=== PATIENT | male | born 1960 | race Caucasian/White ===

== ENCOUNTER 2023-11-20 11:18 | Outpatient (CLI) | payer OTHER, SELFPAY ==
--- NOTE | ~2023-11-20 | XR_ITS ---
Supine and upright views of the abdomen Clinical history: Kidney stone Findings: Bowel gas pattern is nonspecific. No evidence for obstruction or free air. Multiple small r ight renal stones are present, measuring 5 mm. No definite left renal stone.. 1.5 cm hyperdense round calcific impression present in the left upper quadrant, nonspecific. Probable pelvic phleboliths. 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 Impression: Right nephrolithiasis, as above. Reviewed, dictated and finalized at location . Impression: Right nephrolithiasis, as above.
== END 2023-11-20 11:19 | disposition home or self-care (01) ==
LOC: ANHIMG 11:25
PROVIDERS: PCP Student in an Organized Health Care Education/Training Program; Visit Provider Urology
DX: N20.0 Calculus of kidney (principal)
CPT/HCPCS: 74018

== ENCOUNTER 2024-02-16 09:04 | Emergency (ER) | payer OTHER, SELFPAY ==
--- NOTE | ~2024-02-16 | XR_ITS ---
XR finger 3rd LT min 2V Ordering provider: Adilene Dan MD History: . trauma POWER TOOL LAC TO ANT DISTAL LT 3RD DIGIT . Comparison: None. FINDINGS: BONES: No acute fracture or dislocation. JOINT SPACES: Normal. SOFT TISSUES: Laceration in the distal phalanx of the middle finger soft tissues is seen. IMPRESSION: No acute osseous abnormality. Reviewed, dictated and finalized at location A.
[2024-02-16 09:06] VITALS: BP 157/82; PULSE 89; RESP 15; TEMP 36.4; O2SAT 96
[2024-02-16] MEDS: KETOROLAC (*BKC) 60 MG/2 ML VIAL IM (11:37)
--- NOTE | 2024-02-16 11:40 | PC.NURSE ---
Patient states he is up-to-date with his tdap
--- NOTE | 2024-02-16 12:23 | ED.WOUNDLAC ---
HPI - Wound/Laceration General Chief Complaint: Wound/Laceration Stated Complaint: laceration left 2nd finger Time Seen by Provider: 02/16/24 10:59 Source: patient Mode of arrival: ambulatory Limitations: no limitations History of Present Illness HPI narrative: Pt presents to the ER after cutting his 3rd digit on his L hand with a corner trimmer operator. He reports he used washcloths to control the bleeding on the way to the ER. Pt reports he does not have much pain when he doesn't move the finger, but his pain is significant once the pressure is removed. Pt denies shortness of breath, chest pain, palpitations, and fever. Related Data Allergies Allergy/AdvReac Type Severity Reaction Status Date / Time No Known Allergies Allergy Verified 02/16/24 09:11 Review of Systems Review of Systems: All systems reviewed & are unremarkable except as noted in HPI and below Exam Narrative: GENERAL: Well-appearing, well-nourished and in no acute distress. EXTREMITIES: Normal range of motion, no swelling, clubbing or other deformities. Pt has an approximately 5cm laceration on his L 3rd index finger that is continually oozing. The laceration includes a flap of skin still attached that needs to be sutured back to the finger. NEUROLOGICAL: Cranial nerves II through XII grossly intact, no focal deficits noted. Normal gait, normal speech. SKIN: Warm, dry, normal color, no rashes, no lesions. Course Vital Signs Vital signs: Vital Signs Temperature 36.4 C 02/16/24 09:06 Pulse Rate 89 02/16/24 09:06 Respiratory Rate 15 02/16/24 09:06 Blood Pressure 157/82 H 02/16/24 09:06 Pulse Oximetry 96 02/16/24 09:06 Oxygen Delivery Room Air 02/16/24 09:06 Temperature 36.4 C 02/16/24 09:06 Pulse Rate 89 02/16/24 09:06 Respiratory Rate 15 02/16/24 09:06 Blood Pressure 157/82 H 02/16/24 09:06 Pulse Oximetry 96 02/16/24 09:06 Oxygen Delivery Room Air 02/16/24 09:06 Procedures Laceration Laceration 1: Date: 02/16/24 Time: 13:37 Site: hand Side (If applicable): left (3rd digit) Size (cm): 5 Description: linear Depth: simple, single layer Local Anesthetic: lidocaine 1% Amount of anesthesia used (mL): 8 Pre-repair: irrigated extensively ====== Skin Level ====== Skin layer closed with: nylon Size (cm): 4-0 Number of sutures: 10 Technique: simple, interrupted ====== Subcutaneous Layer ====== ====== Muscle Layer ====== ====== Tendon Layer ====== Dressin cm x 1 cm Surgicel placed on top of open wound. Nerve Block Nerve Block 1: Nerve block date: 02/16/24 Nerve block time: 13:10 Side: left Nerve Blocks: digital Procedure Successful: Yes Patient Tolerated Procedure: well Complications: none MDM - Wound/Laceration MDM Narrative Medical decision making narrative: t presents to the ER after cutting his 3rd digit on his L hand with a corner trimmer operator. He reports he used washcloths to control the bleeding on the way to the ER. Pt reports he does not have much pain when he doesn't move the finger, but his pain is significant once the pressure is removed. Upon examination, pt has normal range of motion, no swelling, clubbing or other deformities. Pt has an approximately 5cm laceration on his L 3rd index finger that is continually oozing. The laceration includes a flap of skin still attached that needs to be sutured back to the finger. Pt's 3rd digit continues to bleed after bandage is removed. His 3rd digit was cleaned and CERTIFIED SURGICAL TECH/FIRST ASSISTANT injected Lidocaine into the base of pt's 3rd digit. A digital block was also placed at the base of the 3rd digit. Once pt endorsed numbness in his fingertip, CERTIFIED SURGICAL TECH/FIRST ASSISTANT placed 10 Ethilon 4.0 stitches in pt's 3rd digit. Surgicel was also placed on an open portion of pt's medial 3rd digit. Bleeding was controlled after procedure, but pressure dressin
== END 2024-02-16 14:19 | disposition home or self-care (01) ==
PROVIDERS: Emergency Provider Registered Nurse; PCP Student in an Organized Health Care Education/Training Program
DX: S61.213A Laceration without foreign body of left middle finger without damage to nail, initial encounter (principal); W29.3XXA Contact with powered garden and outdoor hand tools and machinery, initial encounter
CPT/HCPCS: 12002; 73140; 96372; 99283; J1885

== ENCOUNTER 2024-05-07 12:36 | Outpatient (CLI) | payer OTHER, SELFPAY ==
--- NOTE | ~2024-05-07 | CT_ITS ---
CT of the Abdomen and Pelvis: Indication: Abdominal calcification Technique: 2.5 mm axial scans were obtained through the abdomen and pelvis following intravenous adm inistration of 100 cc of Omnipaque 350. Dose reduction technique was used on this scan by utilizing a utomated exposure control and iterative reconstruction technique. The dose-length product (DLP) was 1 099.58 mGy-cm. Findings: Scans through the lung bases are unremarkable. The liver, pancreas, gallbladder, and adrenal glands are within normal limits. There is a 14 mm coars e splenic calcification. There are small bilateral nonobstructing renal stones, largest at the right lower pole measuring 5 mm. No hydronephrosis. No evidence of aortic aneurysm. No lymphadenopathy. No bowel obstruction or bowel wall thickening. There is no evidence to suggest acute appendicitis. Images through the pelvis were performed. Urinary bladder unremarkable. No pelvic mass seen. Small fa t-containing bilateral inguinal hernias are present, right larger than left. No ascites. There is advanced degenerative spondylosis of the lower lumbar spine. Impression: Small bilateral nonobstructing renal stones, as detailed above. Small bilateral fat-containing inguinal hernias, right larger than left. Reviewed, dictated and finalized at [facility]. E ROLL OPERATOR Impression: Small bilateral nonobstructing renal stones, as detailed above. Small bilateral fat-containing inguinal hernias, right larger than left.
[2024-05-07 13:03] LABS: Estimated Glomerular Filt Rate > 60
== END 2024-05-07 12:37 | disposition home or self-care (01) ==
LOC: MICIMG 12:37
PROVIDERS: PCP Student in an Organized Health Care Education/Training Program; Visit Provider Student in an Organized Health Care Education/Training Program
DX: N20.0 Calculus of kidney (principal); K40.20 Bilateral inguinal hernia, without obstruction or gangrene, not specified as recurrent
CPT/HCPCS: 74177; Q9967

== ENCOUNTER 2025-04-23 00:20 | Emergency (ER) | payer OTHER, SELFPAY ==
--- NOTE | ~2025-04-23 | CT_ITS ---
EXAMINATION: CT abdomen pelvis w con DATE: 04/23/2025 03:24 INDICATION: Right abdominal pain. TECHNIQUE: Computed tomography (CT) of the abdomen and pelvis was performed with 100 mL Omnipaque 350 intravenous contrast. Automated exposure control and iterative reconstruction technique were employed. The dose-length product was 1073.85 mGy-cm. COMPARISON: CT abdomen and pelvis 05/07/2024 FINDINGS: The visualized portions of lung bases demonstrate mild atelectasis. No pleural effusion. The heart size is normal. No pericardial effusion. Calcifications in the liver and spleen are consistent with old granulomatous disease. The gallbladder, pancreas, and adrenal glands are normal. There is cortical thinning of the kidneys. There are greater than 10 stones in right kidney measuring up to 5 mm. There is mild right hydronephrosis and proximal hydroureter. There are 3 stones in right ureter where it crosses the iliac vessels measuring up to 2 mm. The prostate is moderately enlarged. There are bilateral inguinal hernias containing fat. There are no dilated loops of bowel. The appendix is normal. There are no pathologically enlarged lymph nodes. There is no free intraperitoneal fluid. There is severe lumbar spondylosis. IMPRESSION: 1. 3 stones in mid right ureter measuring up to 2 mm with mild right hydronephrosis and proximal hydroureter. 2. Nonobstructing right kidney stones. 3. Bilateral inguinal hernias containing fat. Reviewed, dictated and finalized at location E. IMPRESSION: 1. 3 stones in mid right ureter measuring up to 2 mm with mild right hydronephr osis and proximal hydroureter. 2. Nonobstructing right kidney stones. 3. Bilateral inguinal hernias containing fat.
--- OUTSIDE RECORDS SUMMARY | 2025-04-23 00:23 | XMS_ITS | Encounter Summary ---
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 [employer] at March exam visit Social History Tobacco Use Types Packs/Day Years Used Date Smoking Tobacco: Never Alcohol Use Standard Drinks/Week Comments Not Currently 1.7 (1 standard drink = 0.6 oz p ure alcohol) Occasionally drinks beer PHQ-2 Answer Date Recorded Patient Health Questionnaire-2 Score 0 10/25/2024 Sex and Gender Information Value Date Recorded Sex Assigned at Male 10/25/2024 11:21 AM CDT Legal Sex Male 2:43 PM CDT Gender Identity Male 10/25/2024 11:21 AM CDT Sexual Orientation Not on file Occupation Industry Job Start Date Job End Date Not on file Not on file Not on file Not on file Not on file Not on file Not on file Not on file documented as of this encounter Progress Notes * Porter Jones DO - 04/04/2025 7:15 AM CDT I do not see any immediate issues with completing. Can discuss and complete on 04/26/25 appointment. documented in this encounter Plan of Treatment Upcoming Encounters Date Type Department Care Team (Late st Contact Info) Description 04/25/2025 10:00 AM CDT Laboratory Only [facility] Family & Internal [address] [phone] Porter Jones DO [address] [place] [phone] 04/26/2025 10:20 AM CDT Office Visit [facility] Family Internal [address] [phone] Porter Jones DO [address] [place] [address] documented as of this encounter Visit Diagnoses Not on filedocumented in this encounter Care Teams Direct Support Staff Relationship Specialty Start Date End Date Porter Jones DO [address] [place] [address] PCP - General FAMILY PRACTICE 01/02/23 documented as of this encounter
--- OUTSIDE RECORDS SUMMARY | 2025-04-23 00:23 | XMS_ITS | Clinical Summary ---
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 Active atorvastatin (LIPITOR) 20 MG tabletIndications: Hyperlipidemia, unspecified hyperlipidemia type Take 1 tablet (20 mg total) by mouth nightly at bedtime. 90 tablet 3 04/27/20 24 Active lisinopril (PRINIVIL) 20 MG tabletIndications: Primary hypertension TAKE 1 TABLET DAILY 90 tablet 3 12/08/19 25 Active omeprazole (PRILOSEC) 20 MG capsuleIndications :Gastroesophageal reflux disease, unspecified whether esophagitis present TAKE 1 CAPSULE EVERY OTHER DAY 45 capsule 3 04/01/20 25 Active omeprazole (PRILOSEC) 20 MG capsuleIndications :Gastroesophageal reflux disease, unspecified whether esophagitis present Take 1 capsule (20 mg total) by mouth every other day. 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 5 ML Prefilled Syringe) 04/27/2024 Influenza Adult (Generic) 06/16/2023 PFIZER COVID-19 (12+) MRNA, LNP-S, PF, AXEL-SUCROSE, 30 MCG/0.3 ML (COMIRNATY) 04/27/2024 PFIZER COVID-19 (MARTINEZ CAP), MRNA, LNP-S, PF, 30 MCG/0.3 ML AXEL-SUCROSE, IM 11/01/2021,06/06/2021,10/24/2020,2020 Pneumococcal (Prevnar 20) 10/25/2024 Shingrix 10/25/2024 Tdap (Adacel) 10/20/2023 Family History Medical History Relation Comments Squamous cell carcinoma Brother 1 Cancer Brother 2 Common Squamous Cell Carcinoma Diverticulitis Father Hearing loss Father Heart Disease Father Quad bypass Hypertension Father Kidney Stones Father Bone cancer Maternal Aunt 1 Cataract Maternal Aunt 1 Hypotension Maternal Aunt 1 Stroke Maternal Aunt 1 Cancer Maternal Aunt 2 Cancer of the saniya ne, 1951 Cataract Maternal Grandfather Pulmonary Fibrosis Maternal Grandfather Cancer Maternal Grandmother Pancreatic cancer Pancreatic cancer Maternal Grandmother Acute myelogenous leukemia Mother Appendicitis Mother Cancer Mother Acute Myelocytic Leukemia Cataract Mother Diverticulitis Mother Irritable bowel syndrome Mother Diabetes Paternal Grandmother Stroke Paternal Grandmother Appendicitis Sister Hearing loss Sister Hypertension Sister Kidney Stones Sister primary sclerosing cholangi Sister Relation Status Comments Brother 1 Brother 2 Father Maternal Aunt 1 Maternal Aunt 2 Maternal Grandfather Maternal Grandmother Mother Paternal Grandmother Sister Social History Tobacco Use Types Packs/Day Years Used Date Smoking Tobacco: Never Tobacco Cessation:Counseling Given: Yes Alcohol Use Standard Drinks/Week Comments Not Currently [...] file Not on file Not on file Last Filed Vital Signs Vital Sign Reading Time Taken Comments Blood Pressure 126/78 10/25/2024 11:23 AM CDT Pulse 80 10/25/2024 11:23 AM CDT Temperature 36.7 C (98 F) 10/25/2024 11:23 AM CDT Respiratory Rate 16 10/25/2024 11:2 3 AM CDT Oxygen Saturation 98% 10/25/2024 11: 23 AM CDT Inhaled Oxygen Concentration - - Weight 113.7 kg (250 lb 11.2 oz) 2024 11:23 AM CDT Height 180.3 cm (5' 11) 10/25/2024 11: 23 AM CDT Body Mass Index 34.97 10/25/2024 11:23 AM CDT Plan of Treatment Upcoming Encounters Date Type Department Care Team (Late st Contact Info) Description 04/25/2025 10:00 AM CDT Laboratory Only [facility] Family & Internal [place] [address] [place] [phone] Porter Jones DO [address] [place] [address] 04/26/2025 10:20 AM CDT Office Visit [facility] Family & Internal [place] [address] [place] [phone] Porter Jones DO [address] [place] [address] Health Maintenance Due Date Last Done Comments Zoster Vaccines (2 of 2) 12/20/2024 10/25/2024 COVID-19 Vaccine ( season) 2025 04/27/2024, 06/16/2023, 11/01/2021, Additional history exists Influenza Adult (#1) 2025 04/27/2024, 06/16/20 23 Annual Physical 04/27/2025 04/27/2024 Colorectal Cancer Screening Colonoscopy (10 Years) 07/03/2028 07/03/2023, 07/03/2023 DTaP, Tdap and Td Vaccines (2 - Td or Tdap) 10/19/2033 10/20/2023 RSV Immunization or 60+ Years (1 - 1-dose 75+ series) 2037 Hepatitis C Completed 04/14/2023 Colorectal Cancer Screening FIT-DNA (3 Years) Discontinued 04/21/2023, 04/21/2023 PHQ-2 (Physician [facility]) Completed 10/25/2024 Pneumococcal Vaccine: 50+ Years Completed 10/25/2024 Hepatitis A Vaccines Aged Out No long er eligible based on patient's age to complete this topic Meningococcal B Vaccine Aged Out No l onger eligible based on patient's age to complete this topic Meningococcal Vaccine Aged Out No ashley hemal eligible based on patient's age to complete this topic RSV Immunizations Under 20 Months Aged Out No longer eligible based on patient's age to complete this topic Procedures Procedure Name Priority Date/Time Associated Diagnosis Comments COLONOSCOPY Routine 07/03/2023 10:51 AM [employer] COLOGUARD ([employer]) Routine 04/21/2023 1:50 PM CDT Annual physical exam Screening for malignant neoplasm of colon HEPATITIS C ANTIBODY Routine 04/14/2023 2:09 PM CDT Annual physical exam Screening for lipid disorders Screening for endocrine, metabolic and immunity disorder Screening for prostate cancer from Last 3 Months or Most Recently Relevant to Health Maintenance Results * (ABNORMAL) COLOGUARD ([employer]) (04/21/2023 1:50 PM CDT) COLOGUARD RESULT Positive( A) Negative [facility] (CLIA #:[id number]) Comment: POSITIVE TEST RESULT. A positive Cologuard result should be followed with a colonoscopy or visual examination of the colon. The normal value (reference range) for this assay is negative. TEST DESCRIPTION: Composite algorithmic analysis of stool DNA-biomarkers with hemoglobin immunoassay. Quantitative values of individual biomarkers are not reportable and are not associated with individual biomarker result reference ranges. Cologuard is intended for colorectal cancer screening of adults of either sex, 45 years or older, who are at average-risk for colorectal cancer (CRC). Cologuard has been approved for use by the U.S. FDA. The performance of Cologuard was established in a cross sectional study of average-risk adults aged 50-84. Cologuard performance in patients ages 45 to 49 years was estimated by sub-group analysis of near-age groups. Colonoscopies performed for a positive result may find as the most clinically significant lesion: colorectal cancer [4.0%], advanced adenoma (including sessile serrated polyps greater than or equal to 1cm diameter) [20%] or non- advanced adenoma [31%]; or no colorectal neoplasia [45%]. These estimates are derived from a prospective cross-sectional screening study of 10,000 individuals at average risk for colorectal cancer who were screened with both Cologuard and colonoscopy. (Rich Logan. et al, N Engl J Med 2014;370(14):8728-2429.) Cologuard may produce a false negative or false positive result (no colorectal cancer or precancerous polyp present at colonoscopy follow up). A negative Cologuard test result does not guarantee the absence of CRC or advanced adenoma (pre-cancer). The current Cologuard screening interval is every 3 years. ([place] [employer] Society and U.S. Multi-Society Task Force). Cologuard performance data in a 10,000 patient pivotal study using colonoscopy as the reference method can be accessed at the following location: [email or web address]. Additional description of the Cologuard test process, warnings and precautions can be found at [email or web address]. STOOL STOOL SPECIMEN / Unknown 04/21/2023 1:50 PM CDT 04/22/2023 4:22 PM CDT us Porter Jones DO BODY FLUIDS AND STOOLS O RDERABLES Final Result [employer] ([facility]) [address] [place] [address], [facility] (CLIA #:[id number]) [place] [address] * HEPATITIS C ANTIBODY ([facility] ONLY) (04/14/2023 2:09 PM CDT) HEPATITIS C AB NON-REACTI VE NON-REACT CLAY 04/15/2023 6:37 PM CDT [facility] Comment: ANTIBODIES TO HCV NOT DETECTED. DOES NOT EXCLUDE THE POSSIBILITY OF EXPOSURE TO HCV. 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
[2025-04-23 00:25] VITALS: BP 171/84; PULSE 88; RESP 18; TEMP 36.6; O2SAT 100
--- NOTE | 2025-04-23 02:04 | ED_ITS ---
HPI - Abdominal Pain General Chief Complaint: Abdominal Pain Stated Complaint: lower right abdominal pain Time Seen by Provider: 04/23/25 01:47 Source: patient Mode of arrival: ambulatory Limitations: no limitations History of Present Illness HPI narrative: This is a 65-year-old male with history of hypertension, hyperlipidemia, kidney stones who presents the ED for right lower quadrant pain and right flank pain. Patient states that 4 hours ago, he was sitting at home when he had sudden onset right lower quadrant pain that radiated to his right flank. Denies fevers, chills, dysuria, hematuria. He states that this feels slightly similar to his prior kidney stones but they never radiated to his right flank before. His most recent stone was 4 years ago. Related Data Allergies Allergy/AdvReac Type Severity Reaction Status Date / Time No Known Allergies Allergy Verified 02/16/24 09:11 Review of Systems 2 Review of Systems: Gen.: Denies fevers or chills Eyes: Denies eye pain or visual change ENT: Denies congestion Respiratory: Denies shortness of breath or cough CV: Denies chest pain or palpitations GI: As per HPI denies burning, urgency, frequency or hematuria Musculoskeletal: Denies back pain or muscle pain Neuro: Denies numbness, tingling, weakness or focal weakness Skin: Denies rash Except as documented, all other systems reviewed and negative Exam 2 Narrative: APPEARANCE: Moderate distress, nontoxic, pacing around the room EYES: EOMI HEENT: Normocephalic, atraumatic, OMM RESPIRATORY: No respiratory distress Clear to auscultation bilaterally with no rhonchi wheezing or rales. CARDIOVASCULAR: Regular rate and rhythm without murmurs rubs or gallops. ABDOMINAL: Soft, tenderness palpation to the right lower quadrant, nondistended, no rebound or guarding. CVA tenderness on the right MUSCULOSKELETAl: Moves all extremities. No clubbing, cyanosis or edema. NEURO: Awake and alert. Following commands, speech normal, no focal deficits SKIN:: Warm, dry. No rashes lesions or abrasions PSYCHIATRIC: Normal affect/mood, Course Vital Signs Vital signs: Vital Signs Temperature 97.9 F 04/23/25 00:25 Pulse Rate 88 04/23/25 00:25 Respiratory Rate 18 04/23/25 00:25 Blood Pressure 171/84 H 04/23/25 00:25 Pulse Oximetry 100 04/23/25 00:25 Oxygen Delivery Room Air 04/23/25 00:25 Temperature 97.9 F 04/23/25 00:25 Pulse Rate 85 04/23/25 06:18 Respiratory Rate 17 04/23/25 06:18 Blood Pressure 158/60 H 04/23/25 06:18 Pulse Oximetry 97 04/23/25 06:18 Oxygen Delivery Room Air 04/23/25 00:25 MDM - Abdominal Pain MDM Narrative Medical decision making narrative: 65-year-old male presenting for right lower quadrant abdominal pain and right flank pain. On initial evaluation, patient was pacing around in the room in mild distress, afebrile, hemodynamically stable. He did have right lower quadrant tenderness to palpation with CVA tenderness on the right. He had a mild leukocytosis at 13.7. CMP without significant abnormalities. UA clear. CT abdomen/pelvis did reveal multiple small stones on the right. Patient has established with a urologist here but he does not recall his name. The stones are likely to pass. Patient was given prescriptions for Flomax, Toradol, [place], Zofran. He was advised follow-up with his urologist in the next week for re-evaluation. Patient was agreeable to this plan. Given strict return precautions. Differential Diagnosis Differential diagnosis: Likely acute appendicitis, calculus of kidney, constipation, diverticulitis, gastroenteritis, pancreatitis, small bowel obstruction and other Medical Records Attestation: I reviewed the patient's medical records. Lab Data Attestation: I reviewed the patient's lab results. 04/23/25 02:38 04/23/25 02:38 Labs: Lab Results 04/23/25 04/23/25 Range/Units 02:38 04:41 WBC 13.7 H (4.5-10.0) K/mm3 RBC 4.86 (4.6-6.20) M/mm3 Hgb 14.3 (14.0-18.0) g/dL Hct 42.2 (42.0-52.0) % MCV 86.8 (80-100) fl MCH 29.4 (26-34) pg MCHC 33.9 (32-36) g/dl RDW 11.9 (11.5-14.5) % Plt Count 278 (150-375) k/mm3 MPV 9.3 (7.4-10.4) fl Immature Gran % (Auto) 0.4 (0-0.5) % Neut % (Auto) 84.1 H (45.5-73.1) % Lymph % (Auto) 9.3 L (18.3-44.2) % [place] % (Auto) 5.0 (2.6-8.5) % Eos % (Auto) 0.7 (0-4.4) % Baso % (Auto) 0.5 (0.2-1.2) % Lymph # (Auto) 1.27 (0.9-3.2) K/mm3 [place] # (Auto) 0.7 H (0.1-0.6) K/mm3 Eos # (Auto) 0.1 (0-0.3) K/mm3 Baso # (Auto) 0.1 (0.0-0.1) K/mm3 Abs Immat Gran (auto) 0.05 H (0.00-0.031) K/mm3 Absolute Neuts (auto) 11.5 H (1.3-6.7) K/mm3 Absolute Nucleated RBC 0.000 (0.0-0.012) K/mm3 Nucleated RBC % 0.0 (0.0-0.2) % Sodium 138 (137-145) mmol/L Potassium 3.7 (3.4-5.0) mmol/L Chloride 106 (98-107) mmol/L Carbon Dioxide 21 L (22-30) mmol/L Anion Gap 11 (4-12) mmol/L BUN 18 (9-20) mg/dL Creatinine 1.17 (0.7-1.3) mg/dL Estim Creat Clear Calc 72 ml/min Estimated GFR > 60 (59 - ) Glucose 148 H (65-110) mg/dL Calcium 9.5 (8.4-10.2) mg/dL Total Bilirubin 0.7 (0.2-1.3) mg/dL AST 30 (17-59) U/L ALT 36 (6-50) U/L Alkaline Phosphatase 88 (38-126) U/L Total Protein 7.2 (6.3-8.2) g/dL Albumin 4.3 (3.5-5.1) g/dL Lipase 57 (23-300) U/L Urine Color Yellow (Yellow) Urine Appearance Clear (Clear) Urine pH 6.5 (5.0-9.0) Ur Specific [place] 1.038 H (1.001-1.035) Urine Protein Negative (Negative) mg/dL Urine Glucose (UA) Negative (Negative) mg/dL Urine Ketones Negative (Negative) mg/dL Ur Blood (Man) Negative (Negative) Urine Nitrate Negative (Negative) Urine Bilirubin Negative (Negative) Urine Urobilinogen 0.2 (<2.0) mg/dL Leukocyte Esterase Rfl Negative (Negative) CALIN/UL Imaging Data Attestation: I personally reviewed and interpreted this imaging study as follows: My impression: CT abdomen/pelvis. Three ureteral stones within the mid right ureter with proximal hydronephrosis and hydroureter, noted perinephric stranding. Radiologist's impression: CT abdomen/pelvis: Mild right-sided hydronephrosis and hydroureter with 3 stones seen at the mid right ureter largest measuring 3.1 mm. There is delayed enhancement of the right kidney. Soft tissue stranding is seen surrounding the right kidney which may be postobstructive in nature although underlying superimposed infection process is not excluded. No left-sided renal obstruction or stone. Findings suggestive of mild colitis without evidence of obstruction. Discharge Plan Discharge Clinical Impression: Ureterolithiasis Patient Disposition: Home Condition: Stable Instructions: Antibiotic Form, Ureteral Stones (ED) Additional Instructions: Take Zofran, Toradol, Flomax as prescribed. Follow-up with your urologist or Dr. James in the next week for re-evaluation. Return to the ED for any new or worsening symptoms. Patient Language: Yakut Prescriptions: New ondansetron 4 mg tablet,disintegrating 4 mg PO Q8H PRN (Reason: nausea and vomiting) Qty: 14 0RF ketorolac 10 mg tablet 10 mg PO Q8H PRN (Reason: pain) Qty: 15 0RF Rx Instructions: maximum total duration of 5 days from all oral, intranasal, or parenteral formulations tamsulosin [Flomax] 0.4 mg capsule 0.4 mg PO HS Qty: 30 0RF hydrocodone-acetaminophen 5-325 mg tablet 1 tablet PO Q8H PRN (Reason: pain (scale score 7-10)) Qty: 12 0RF Follow-up/Referrals: Lauryn James MD [Physician, Urology] Robert,DO Porter [Primary Care Provider]
[2025-04-23] MEDS: ONDANSETRON INJ 4 MG/2 ML VIAL IV PUSH (02:28)
[2025-04-23] MEDS: SODIUM CHLORIDE 0.9% IV 1,000 ML 999 ML IV CONT (02:28)
[2025-04-23] MEDS: KETOROLAC 30 MG/ML VIAL (*BKC) IV PUSH (02:30)
--- OUTSIDE RECORDS SUMMARY | 2025-04-23 02:40 | XMS_ITS | Encounter Summary ---
Author Organization [facility] Address [address] [place] [id number] Care Team Providers Care Auto Body Repair Teacher Name Role Phone Porter Jones DO Primary Care Provider + Encounter Details Date Type Department Care Team (Late st Contact Info) Description 03/31/2025 Olo Message Enc [facility] Family & Internal Medicine [facility] [address] [place] [phone] Porter Jones DO [address] [place], [place] [phone] Reminder of request for flight exam related [...] Description 04/25/2025 10:00 AM CDT Laboratory Only [facility] Family & Internal [address] [phone] Porter Jones DO [address] [place] [phone] 04/26/2025 10:20 AM CDT Office Visit [facility] Family Internal [address] [phone] Porter Jones DO [address] [place] [phone] documented as of this encounter Visit Diagnoses Not on filedocumented in this encounter Care Teams Auto Body Repair Teacher Relationship Specialty Start Date End Date Porter Jones DO [address] [place] [id number] PCP - General FAMILY PRACTICE 01/02/23 documented as of this encounter
--- OUTSIDE RECORDS SUMMARY | 2025-04-23 02:40 | XMS_ITS | Clinical Summary ---
Author Organization [facility] Address Formerly [facility] [place] [address] Care Team Providers Care Cloth Examiner Name Role Phone Porter Jones DO Primary [...] Date Type Department Care Team Description 03/31/2025 OptuLinkt Message Enc [facility] Family & Internal Medicine [address] [phone] Porter Jones, Reminder of request for flight [...] Description 04/25/2025 10:00 AM CDT Laboratory Only [facility] Family & Internal [place] [address] [place] [phone] Porter Jones DO [address] [place] [address] 04/26/2025 10:20 AM CDT Office Visit [facility] Family & Internal [place] [address] [place] [phone] Porter Jones DO [address] [place] [address] Health Maintenance Due Date Last Done Comments [...] (3 Years) Discontinued 04/21/2023, 04/21/2023 PHQ-2 (Physician [place]) Completed 10/25/2024 Pneumococcal Vaccine: 50+ Years Completed [...] Diagnosis Comments COLONOSCOPY Routine 07/03/2023 10:51 AM 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 A positive Cologuard [...] Logan. et al, N Engl J Med 2014;370(14):2866-2246.) Cologuard may produce a false negative or false positive result (no colorectal cancer or precancerous polyp present at colonoscopy follow up). A negative Cologuard test result does not guarantee the absence of CRC or advanced adenoma (pre-cancer). The current Cologuard screening interval is every 3 years. ([place] [employer] Society and U.S. Multi-Society Task Force). Cologuard performance data in a 10,000 patient pivotal study using colonoscopy as the reference method can be accessed at the following location: www.[employer].Beem/results. Additional description of the Cologuard test process, warnings and precautions can be found at [email or web address]. STOOL STOOL SPECIMEN / Unknown 04/21/2023 1:50 PM CDT 04/22/2023 4:22 PM CDT us Porter Jones DO BODY FLUIDS AND STOOLS O RDERABLES Final Result [facility] ([facility]) [address] [place] [address], [employer] (CLIA #:[id number]) [address] [address] * HEPATITIS C ANTIBODY ([facility] ONLY) (04/14/2023 2:09 PM CDT) HEPATITIS C AB NON-REACTI VE NON-REACT CLAY 04/15/2023 6:37 PM CDT [facility] Comment: ANTIBODIES TO HCV NOT DETECTED. DOES NOT EXCLUDE THE POSSIBILITY OF EXPOSURE TO HCV. 04/14/2023 2:09 PM CDT Porter Jones DO LABORATORY Final Re sult [facility] [address] [place] [address], [id number] from Last 3 Months or Most Recently Relevant to Health Maintenance Insurance [facility] Care Teams Cloth Examiner Relationship Specialty Start Date End Date Porter Jones DO [address] [place] [id number] PCP - General FAMILY PRACTICE 01/02/23
[2025-04-23 02:43] LABS: Hematocrit 42.2 % (42.0-52.0); Hemoglobin 14.3 g/dL (14.0-18.0); Immature Granulocyte Percent A 0.4 % (0-0.5); Lymphocytes Absolute Auto 1.27 K/mm3 (0.9-3.2); Mean Corpuscular HGB Conc 33.9 g/dl (32-36); Mean Corpuscular Hemoglobin 29.4 pg (26-34); Mean Corpuscular Volume 86.8 fl (80-100); Nucleated Red Blood Cells Absolute Auto 0.000 K/mm3 (0.0-0.012); Nucleated Red Blood Cells Perc 0.0 % (0.0-0.2); Platelet Count Result 278 k/mm3 (150-375); Red Blood Count 4.86 M/mm3 (4.6-6.20); White Blood Count 13.7 K/mm3 (4.5-10.0)
[2025-04-23 02:45] VITALS: BP 168/81; PULSE 87; RESP 19; O2SAT 98
[2025-04-23 03:04] LABS: Alanine Aminotransferase 36 U/L (6-50); Albumin Level 4.3 g/dL (3.5-5.1); Alkaline Phosphatase 88 U/L (38-126); Anion Gap 11 mmol/L (4-12); Aspartate Amino Transferase 30 U/L (17-59); Bilirubin,Total 0.7 mg/dL (0.2-1.3); Blood Urea Nitrogen 18 mg/dL (9-20); Calcium 9.5 mg/dL (8.4-10.2); Carbon Dioxide 21 mmol/L (22-30); Chloride 106 mmol/L (98-107); Estimated CRCL calculation 72 ml/min; Estimated Glomerular Filt Rate > 60; Glucose 148 mg/dL (65-110); Lipase 57 U/L (23-300); Potassium 3.7 mmol/L (3.4-5.0); Sodium 138 mmol/L (137-145); Total Protein 7.2 g/dL (6.3-8.2)
[2025-04-23] MEDS: MORPHINE SULFATE (*CRX) 4 MG/ML INJ IV PUSH (04:31)
[2025-04-23 04:45] VITALS: BP 172/79; PULSE 82; RESP 15; O2SAT 96
[2025-04-23 04:49] LABS: Add Urine Microscopic? NO; Appearance Urine Clear (Clear); Glucose Urine UA Negative (Negative); Leukocyte Esterase Ur Negative LEU/UL (Negative); Nitrate Urine Negative (Negative); Specific Grav Ur 1.038 (1.001-1.035)
[2025-04-23 06:17] VITALS: BP 158/60; PULSE 85; RESP 17; O2SAT 97
[2025-04-23 06:18] VITALS: BP 158/60; PULSE 85; RESP 17; O2SAT 97
== END 2025-04-23 06:20 | disposition home or self-care (01) ==
PROVIDERS: Emergency Provider Student in an Organized Health Care Education/Training Program; PCP Student in an Organized Health Care Education/Training Program
DX: N13.2 Hydronephrosis with renal and ureteral calculous obstruction (principal); I10 Essential (primary) hypertension; E78.5 Hyperlipidemia, unspecified; Z87.442 Personal history of urinary calculi; K40.20 Bilateral inguinal hernia, without obstruction or gangrene, not specified as recurrent
CPT/HCPCS: 36415; 74177; 80053; 81003; 83690; 85025; 96361; 96374; 96375; 99284; J1885; J2270; J2405; J7030; Q9967

== ENCOUNTER 2025-05-23 07:29 | Outpatient (CLI) | payer OTHER, SELFPAY ==
--- NOTE | ~2025-05-23 | CT_ITS ---
EXAMINATION: CT abdomen and pelvis with and without contrast: DATE: 05/23/2025. INDICATION: Kidney stones. History of right hydronephrosis TECHNIQUE: CT was performed before and after administration of 100 cc of IV contrast were obtained. Radiation dose 2748 mgycm COMPARISON: CT dated 04/23/2025. FINDINGS: Lung bases do not show acute findings. Gallbladder, pancreas do not show acute findings. Multiple nonobstructing calculi of right kidney measuring up to 7 mm in diameter. No evidence of ureteric calculi or hydronephrosis at this time. No bladder calculi. Moderately enlarged prostate. Bilateral inguinal hernia containing omental fat. IMPRESSION: 1. Multiple nonobstructing right renal calculi. 2. No ureteric calculi or hydronephrosis at this time. 3 moderately enlarged prostate. 4. Bilateral inguinal hernia containing omental fat. 5. Severe degenerative disc disease with retrolisthesis at L3-4 level. Significant degenerative changes at L4-5 and L5-S1 levels. Reviewed, dictated and finalized at location T. COVERER IMPRESSION: 1. Multiple nonobstructing right renal calculi. 2. No ureteric calculi or hydronephrosis at this time. 3 moderately enlarged pr ostate. 4. Bilateral inguinal hernia containing omental fat. 5. Severe degenerative disc disease with retrolisthesis at L3-4 level. Signific ant degenerative changes at L4-5 and L5-S1 levels.
== END 2025-05-23 07:30 | disposition home or self-care (01) ==
LOC: ANHIMG 07:31
PROVIDERS: PCP Student in an Organized Health Care Education/Training Program; Visit Provider Physician Assistant
DX: N20.0 Calculus of kidney (principal); N40.0 Benign prostatic hyperplasia without lower urinary tract symptoms; K40.20 Bilateral inguinal hernia, without obstruction or gangrene, not specified as recurrent; M51.369 Other intervertebral disc degeneration, lumbar region without mention of lumbar back pain or lower extremity pain; M43.16 Spondylolisthesis, lumbar region; M47.896 Other spondylosis, lumbar region; M47.897 Other spondylosis, lumbosacral region
CPT/HCPCS: 74178; Q9967